=== PATIENT | female | born 1995 | race African-American/Black ===

== ENCOUNTER 2022-07-27 14:27 | Emergency (ER) | payer SELFPAY ==
[~2022-07-27] VITALS: Ht 175.3 cm; Wt 80.0 kg
[2022-07-27 14:55] VITALS: BP 118/70
== END 2022-07-27 15:18 | disposition left against medical advice (07) ==
LOC: ER 14:27
DX: J06.9 Acute upper respiratory infection, unspecified (principal); J45.909 Unspecified asthma, uncomplicated